=== PATIENT | female | born 1980 | race American Indian/Alaskan Native ===

== ENCOUNTER 2017-10-12 11:36 | Outpatient (CLI) | payer MEDICAID ==
[2017-10-12 11:54] VITALS: BP 119/71
--- NOTE | 2017-10-12 14:18 | Ultrasound Report ---
ULTRASOUND BIOPHYSICAL PROFILE: History: Nonreactive NST Technique: Transabdominal ultrasound with Doppler interrogation. 2 - breathing movements 2 - movements 2 - posture and tone 2 - Qualitative amniotic fluid volume 8 - TOTAL SCORE OF POSSIBLE 8 Heart Rate (bpm) 135
--- NOTE | 2017-10-12 14:19 | Ultrasound Report ---
ULTRASOUND OB LIMITED History: TESSA. Variable decelerations in M.D. office Technique: Transabdominal ultrasound with Doppler interrogation. Gestation: Single Position: Cephalic Amniotic Fluid: Normal TESSA = 10.4 cm Heart Rate: 135 BPM
== END 2017-10-12 13:30 | disposition home or self-care (01) ==
LOC: TRG 11:36
PROVIDERS: ATTEND Obstetrics & Gynecology
DX: O47.03 False labor before 37 completed weeks of gestation, third trimester (principal); Z3A.37 37 weeks gestation of pregnancy
CPT/HCPCS: 59025; 76815; 76819